=== PATIENT | female | born 1970 ===

== ENCOUNTER 2021-02-04 15:26 | Inpatient (IN) | payer OTHER ==
[~2021-02-04] VITALS: Ht 149.9 cm; Wt 54.9 kg
--- NOTE | 2021-02-04 15:47 | NUR ---
Pt GCS 13-14, very sleepy from phenergan en route. Denies pain now, denies allergies, says has diabetes and high thyroid, no covid vaccine, no drugs, no alcohol, no tobacco. On monitor s tach no ectopy. BG on arrival 174. D5 LR started per addy Steven from previous hospital draining clear yellow urine, Lab to draw. EKG done. Will continue to monitor.
[2021-02-04] MEDS: D5%-LACTATED RINGERS 1,000 ML IV SCH ×2 (15:49→22:40)
--- NOTE | 2021-02-04 16:15 | NUR ---
Lab called re: delay of draw, sending someone now. Pt remains drowsy but will wake up with loud verbal and answer questions. IVF infusing on dial a flow, daly from previous facility draining clear yellow urine. VSS. Will continue to monitor.
[2021-02-04 16:18] LABS: PH, VENOUS 7.189 pH (7.320-7.420)
[2021-02-04 16:19] LABS: MEAN CORPUSCULAR HEMOGLOBIN 27.1 pg (27.0-34.8); MEAN CORPUSCULAR HGB CONC 30.8 g/dL (32.4-35.8); MEAN PLATELET VOLUME 6.7 fL (7.4-10.4); PLATELET COUNT 349 x10^3/uL (130-400); RED BLOOD COUNT 4.41 x10^6/uL (3.82-5.3); RED CELL DISTRIBUTION WIDTH 21.2 % (9.6-15.2)
[2021-02-04 16:30] LABS: ALBUMIN 3.1 g/dL (3.4-5.0); ANION GAP 18 mmol/L (5-15); CALCIUM 9.3 mg/dL (8.5-10.1); CHLORIDE 110 mmol/L (98-107); CREATININE 1.22 mg/dL (0.55-1.02)
--- NOTE | 2021-02-04 16:35 | NUR ---
Labs back, per dr vegas no further orders at this time. Waiting for hospitalist. Will continue to monitor.
[2021-02-04 16:53] LABS: BAND#(MANUAL) 0.12 x10^3/uL; BANDS%(MANUAL) 1 % (0-7); LYMPH#(MANUAL) 0.81 x10^3/uL (1-3.4); LYMPHS% (MANUAL) 7 % (22-44); MONOS#(MANUAL) 0.46 x10^3/uL (0.3-2.7); MONOS% (MANUAL) 4 % (2-9); SEGS% (MANUAL) 88 % (42-75)
[2021-02-04 16:55] LABS: <PLATELET ESTIMATE> ADEQUATE; ANISOCYTOSIS 1+; SMALL PLATELETS 1+
--- NOTE | 2021-02-04 16:56 | NUR ---
Gap 18, requested further orders from dr vegas. No further at this time.
[2021-02-04] MEDS ORDERED: MORPHINE SULFATE 4 MG/ML, 1ML ONE ×2 (17:07→19:54)
[2021-02-04] MEDS ORDERED: KETOROLAC 30 MG/1 ML ONE (17:08)
[2021-02-04 17:12] LABS: ACETONE, SERUM Large (80mg/dL) (Negative)
--- NOTE | 2021-02-04 17:15 | NUR ---
Informed ERP of increasing in pain and current vs. Order for toradol IV. No further orders at this time.
[2021-02-04] MEDS ORDERED: KETOROLAC 30 MG/1 ML IVPush ONE (17:30)
--- NOTE | 2021-02-04 17:40 | NUR ---
ICU physician here to place orders, STAT EKG being done.
--- NOTE | 2021-02-04 17:45 | NUR ---
Lab here for additional bloods, urine sent from [facility], EKG being done, waiting for additional hospitalist orders.
[2021-02-04] MEDS ORDERED: MAGNESIUM SULFATE PMX 2GM/50ML 50 ML ONE (17:52)
[2021-02-04] MEDS ORDERED: POLYETHYLENE GLYCOL 17 GM PACKET PO PRN ×2 (18:00)
[2021-02-04] MEDS ORDERED: VANCOMYCIN PMX 1GM/200ML 200 ML IV ONE (18:00)
[2021-02-04] MEDS ORDERED: ACETAMINOPHEN 325 MG TABLET PO PRN (18:00)
[2021-02-04] MEDS ORDERED: DEXTROSE 50%, 50ML SYRINGE IVPush PRN (18:00)
[2021-02-04] MEDS ORDERED: ONDANSETRON 2MG/ML, 2ML IVPush PRN (18:00)
[2021-02-04] MEDS ORDERED: DOCUSATE 100 MG CAPSULE PO PRN (18:00)
[2021-02-04] MEDS ORDERED: METOCLOPRAMIDE 5 MG/ML, 2ML IV PRN (18:00)
[2021-02-04] MEDS ORDERED: MAGNESIUM SULFATE PMX 2GM/50ML 50 ML IV ONE (18:00)
[2021-02-04] MEDS ORDERED: DEXTROSE 4 GM TAB.CHEW PO PRN (18:00)
[2021-02-04] MEDS ORDERED: ENOXAPARIN 40 MG/0.4 ML SQ SCH (18:00)
[2021-02-04] MEDS ORDERED: GLUCAGON 1 MG IM PRN (18:00)
[2021-02-04] MEDS ORDERED: VANCOMYCIN PER PHARMACY MC PRN (18:00)
[2021-02-04] MEDS: ENOXAPARIN 40 MG/0.4 ML SQ SCH (18:00)
--- NOTE | 2021-02-04 18:08 | NUR ---
Lab here obtaining , tubed med request to pharmacy for IVF and insulin infusion.
[2021-02-04 18:11] LABS: MICROSCOPIC INDICATED
[2021-02-04] MEDS: PIPERACILLIN/TAZO 3.375 GM in DEXTROSE 5% 50 ML IV SCH (18:14)
[2021-02-04] MEDS ORDERED: PHARMACOKINETIC MONITORING MC PRN ×2 (18:30→22:30)
[2021-02-04] MEDS ORDERED: VANCOMYCIN 1,400 MG in SODIUM CHLORIDE 0.9% 250 ML IV ONE (18:30)
[2021-02-04] MEDS: D5%-0.45NACL+KCL 20MEQ 1,000 ML IV SCH (18:33)
--- NOTE | 2021-02-04 18:33 | NUR ---
Pt moved over from ER gurney to CCU bed, IVF with lytes started, zosyn almost finished. Still waiting for Insulin drip from pharmacy. Pt remains sleepy, intermittent confusion, knows name, will converse but occ inappropriate, asking for pain medications. Pos UO from [facility]. Output on Day shift: 2500ml
[2021-02-04 18:42] LABS: ANION GAP 22 mmol/L (5-15); CALCIUM 8.9 mg/dL (8.5-10.1); CHLORIDE 107 mmol/L (98-107); CREATININE 1.19 mg/dL (0.55-1.02)
[2021-02-04 18:45] LABS: TROPONIN I < 0.015 ng/mL (0.000-0.045)
--- NOTE | 2021-02-04 18:53 | NUR ---
Report to ROBERTH Galvez
--- NOTE | 2021-02-04 18:57 | NUR ---
care assumed. pt AxOx2, self and "hospital". pt on monitor. pt repeating statements and needs frequent reorientation
--- NOTE | 2021-02-04 19:15 | NUR ---
Dr Fay notified of agitation and mental status.
[2021-02-04] MEDS: REGULAR INSULIN 100 UNITS in SODIUM CHLORIDE 0.9% 99 ML IV PRN (19:32)
[2021-02-04] MEDS ORDERED: LORazepam 2 MG/ML, 1ML ONE (19:55)
[2021-02-04] MEDS: LORazepam 2 MG/ML, 1ML IVPush PRN (19:57)
[2021-02-04] MEDS ORDERED: MORPHINE SULFATE 4 MG/ML, 1ML IVPush PRN (20:00)
--- NOTE | 2021-02-04 20:22 | NUR ---
pt to CT via pat[facility]
--- NOTE | 2021-02-04 20:41 | NUR ---
pt returned from ct
[2021-02-04] MEDS: SODIUM CHLORIDE FLUSH 10ML SYR IVF SCH (21:00)
--- NOTE | 2021-02-04 21:22 | NUR ---
BED IN LOW POSITION. BED ALARM ON. PT RESTING COMFORTABLY
[2021-02-04 21:56] LABS: ANION GAP 24 mmol/L (5-15); CALCIUM 8.8 mg/dL (8.5-10.1); CHLORIDE 106 mmol/L (98-107); CREATININE 1.36 mg/dL (0.55-1.02)
[2021-02-04 21:59] LABS: TROPONIN I < 0.015 ng/mL (0.000-0.045)
[2021-02-04] MEDS ORDERED: PHARMACOKINETIC CONSULTATION MC ONE (22:30)
--- NOTE | 2021-02-04 22:46 | NUR ---
pt resting comfortably, Per Dr Lynch increase Insulin gtt to 10u for critical lab result
--- NOTE | 2021-02-05 00:17 | NUR ---
pt asleep. arouses to voice.
[2021-02-05] MEDS ORDERED: LORazepam 2 MG/ML, 1ML ONE (01:09)
[2021-02-05] MEDS: LORazepam 2 MG/ML, 1ML IVPush PRN (01:18)
[2021-02-05] MEDS: PIPERACILLIN/TAZO 3.375 GM in DEXTROSE 5% 50 ML IV SCH ×4 (01:39→20:36)
[2021-02-05 02:06] LABS: ANION GAP 10 mmol/L (5-15); CALCIUM 8.6 mg/dL (8.5-10.1); CHLORIDE 114 mmol/L (98-107); CREATININE 1.13 mg/dL (0.55-1.02)
[2021-02-05] MEDS: D5%-0.45NACL+KCL 20MEQ 1,000 ML IV SCH ×3 (03:09→17:49)
[2021-02-05 03:15] LABS: HCG UR SG 1.018 (1.003-1.030)
--- NOTE | 2021-02-05 03:18 | NUR ---
pt arouses to voice. pt AxOx2. falls asleep quickly.
[2021-02-05] MEDS: D5%-LACTATED RINGERS 1,000 ML IV SCH (05:20)
[2021-02-05 05:43] LABS: BASOPHILS % (AUTO) 1 % (0-1); EOSINOPHILS % (AUTO) 0 % (1-7); LYMPHOCYTES % (AUTO) 11 % (22-44); MEAN CORPUSCULAR HGB CONC 31.7 g/dL (32.4-35.8); MEAN PLATELET VOLUME 6.8 fL (7.4-10.4); MONOCYTES % (AUTO) 7 % (2-9); NEUTROPHILS % (AUTO) 81 % (42-75); PLATELET COUNT 314 x10^3/uL (130-400); RED BLOOD COUNT 3.76 x10^6/uL (3.82-5.3); RED CELL DISTRIBUTION WIDTH 21.3 % (9.6-15.2)
[2021-02-05 05:53] LABS: ALBUMIN 2.3 g/dL (3.4-5.0); ANION GAP 15 mmol/L (5-15); CALCIUM 8.2 mg/dL (8.5-10.1); CHLORIDE 111 mmol/L (98-107)
[2021-02-05] MEDS: LEVOTHYROXINE 50 MCG TABLET PO SCH (06:00)
[2021-02-05 06:02] LABS: ALANINE AMINOTRANSFERASE 15 U/L (12-78); ALKALINE PHOSPHATASE 309 U/L (45-117); BILIRUBIN,TOTAL 0.3 mg/dL (0.2-1.0); CHOLESTEROL, TOTAL 157 mg/dL (140-239); CREATININE 1.13 mg/dL (0.55-1.02); HDL CHOL % 33 % (28-40); HDL CHOLESTEROL (DIRECT) 52 mg/dL (40-60); LDL CHOLESTEROL,CALCULATED 71 mg/dL (54-169); LDL/HDL RATIO 1.4 (0.5-3.0); TOTAL PROTEIN 6.5 g/dL (6.4-8.2); TRIGLYCERIDES 171 mg/dL (50-200); TROPONIN I < 0.015 ng/mL (0.000-0.045); VLDL CHOLESTEROL 34 mg/dL (0-25)
--- NOTE | 2021-02-05 06:19 | NUR ---
pt answers to voice. AxOx2. Pt positioned for comfort. VSS.
--- NOTE | 2021-02-05 06:53 | NUR ---
TOOK REPORT FROM BLU NOLAN, ASSUME CARE AT THIS TIME
--- NOTE | 2021-02-05 07:10 | NUR ---
PT AMBULATED TO RESTROOM WITH STEADY GAIT, LINENS CHANGED. NAD
--- NOTE | 2021-02-05 07:10 | NUR ---
Pharmacy-nursing communication sent for esmolol
--- NOTE | 2021-02-05 07:18 | NUR ---
PT CALM IN BED, NAD. NO REQUESTS AT THIS TIME
--- NOTE | 2021-02-05 07:31 | NUR ---
INSULIN STOPPED AT THIS TIME FOR BS 108
[2021-02-05] MEDS: REGULAR INSULIN 100 UNITS in SODIUM CHLORIDE 0.9% 99 ML IV PRN (08:45)
--- NOTE | 2021-02-05 08:46 | NUR ---
BS STARTED AT 1 UNIT FOR BS 152. DIET TRAY GIVEN
--- NOTE | 2021-02-05 09:20 | NUR ---
PHARMACY-NURSING COMMUNICATION SENT FOR SUSIE
[2021-02-05] MEDS: VANCOMYCIN 1,100 MG in SODIUM CHLORIDE 0.9% 250 ML IV SCH ×2 (10:11→21:59)
--- NOTE | 2021-02-05 11:16 | NUR ---
REPORT FROM BEN LEPE.
[2021-02-05] MEDS: SODIUM CHLORIDE FLUSH 10ML SYR IVF SCH ×2 (11:20→22:01)
[2021-02-05 11:35] LABS: ANION GAP 12 mmol/L (5-15); CHLORIDE 113 mmol/L (98-107)
[2021-02-05 11:38] LABS: CREATININE 1.21 mg/dL (0.55-1.02)
[2021-02-05 11:39] LABS: CALCIUM 8.3 mg/dL (8.5-10.1)
--- NOTE | 2021-02-05 11:46 | NUR ---
ECHO AT BEDSIDE
--- NOTE | 2021-02-05 11:55 | NUR ---
PT SLEEPING IN NAD, VSS. ORAL CARE PROVIDED.
[2021-02-05] MEDS ORDERED: INSULIN GLARGINE 100 UNITS/ML, PEN SQ-INSULIN ONE (12:00)
--- NOTE | 2021-02-05 12:15 | NUR ---
REQUESTED MEDS FROM PHARMACY.
--- NOTE | 2021-02-05 12:39 | NUR ---
PILLOW PLACED ON RIGHT SIDE FOR COMFORT, PT SITTING UP AND EATING ICE CHIPS.
--- NOTE | 2021-02-05 13:33 | NUR ---
WAITING FOR LANTUS, CIPRO GTT, AND K-PHOS FROM PHARMACY.
--- NOTE | 2021-02-05 13:53 | NUR ---
PT SITTING UP IN BED AWAKE AND TALKING, PT REPORTS SHE IS FEELING BETTER. MED REC REVIEWED WITH PT. AWAITING FOR MEDS FROM PHARMACY, SPOKE WITH PHARMACIST, THEY WILL SEND MEDS SHORTLY.
[2021-02-05] MEDS ORDERED: DIAZ10TA4 PO (14:00)
[2021-02-05] MEDS ORDERED: LEVO50TA5 PO (14:00)
[2021-02-05] MEDS ORDERED: VENL37.57 PO (14:00)
[2021-02-05] MEDS ORDERED: INSU100I18 SC (14:00)
[2021-02-05] MEDS ORDERED: LISI10TA19 PO (14:00)
[2021-02-05] MEDS ORDERED: INSU100I28 SC (14:00)
[2021-02-05] MEDS ORDERED: BACL-19 PO (14:00)
[2021-02-05] MEDS ORDERED: ATOR10TA9 PO (14:00)
[2021-02-05] MEDS ORDERED: OMEP20CA20 PO (14:00)
[2021-02-05] MEDS ORDERED: METO5SOL18 PO (14:00)
[2021-02-05] MEDS: CIPROFLOXACIN OPHTH SOLN 0.3%, 5ML RIGHTEYE SCH ×2 (14:08→20:37)
[2021-02-05] MEDS: POTASSIUM ACID PHOSPHATE 500 MG TABLET.SOL PO SCH ×2 (14:08→21:59)
--- NOTE | 2021-02-05 14:09 | NUR ---
LANTUS 5 UNITS ADMINISTERED PER AUG.
--- NOTE | 2021-02-05 16:06 | NUR ---
INSULIN DRIP AND D5/1/2NS+20K STOPPED PER DR. LUCIO'S ORDER. NS INFUSING PER MAR.
[2021-02-05] MEDS: SODIUM CHLORIDE 0.9% 1,000 ML IV SCH (16:08)
--- NOTE | 2021-02-05 16:13 | NUR ---
HUMALOG PEN REQUESTED FROM PHARMACY.
[2021-02-05] MEDS: INSULIN LISPRO 100 UNITS/ML, PEN SQ-INSULIN SCH ×2 (17:04→22:01)
--- NOTE | 2021-02-05 17:05 | NUR ---
PROVIDED MEAL TRAY TO PT.
--- NOTE | 2021-02-05 17:12 | NUR ---
CALL TO DR. LUCIO TO UPDATE ON PT AND VERIFY ORDER FOR TRANSFER TO MEDICAL UNIT, PER DR. LUCIO TRANSFER ORDER PLACED THIS MORNING AT 11AM, OKAY TO TRANSFER PT.
--- NOTE | 2021-02-05 17:14 | NUR ---
PRAKASH [phone]
--- NOTE | 2021-02-05 17:28 | NUR ---
UOP 800ML.
--- NOTE | 2021-02-05 18:58 | NUR ---
BEDSIDE REPORT TO ADI LEPE AND CHRIS LEPE.
--- NOTE | 2021-02-05 18:59 | NUR ---
RECIEVED REPORT FROM ANA. PATIENT RESTING COMFORTABLY IN HOSPITAL BED. PATIENT TURN TO HER BACK, FEET FLOATED. PATIENT IS AOX4, DENIES PAIN, NAD AT THIS TIME. WILL CONTINUE TO MONITOR
[2021-02-05] MEDS ORDERED: ENOXAPARIN 40 MG/0.4 ML ONE (20:30)
[2021-02-05] MEDS: ENOXAPARIN 40 MG/0.4 ML SQ SCH (20:36)
--- NOTE | 2021-02-05 20:47 | NUR ---
PATIENT RESTING IN HOSPITAL BED, NAD AT THIS TIME, VSS, MEDICATED PER MAR, AND PATIENT MOVED UP IN BED.
[2021-02-05] MEDS: INSULIN GLARGINE 100 UNITS/ML, PEN SQ-INSULIN SCH (22:00)
--- NOTE | 2021-02-05 22:19 | NUR ---
Pt to be admitted to MEDICAL, room 375. Report called to
[2021-02-05 23:31] VITALS: BP 151/99
[2021-02-05 23:32] VITALS: BP 151/99
[2021-02-06] MEDS: SODIUM CHLORIDE 0.9% 1,000 ML IV SCH (00:44)
[2021-02-06] MEDS: CIPROFLOXACIN OPHTH SOLN 0.3%, 5ML RIGHTEYE SCH ×6 (00:47→20:31)
[2021-02-06 01:03] VITALS: BP 147/95
[2021-02-06] MEDS: PIPERACILLIN/TAZO 3.375 GM in DEXTROSE 5% 50 ML IV SCH ×2 (02:46→08:25)
[2021-02-06] MEDS: POTASSIUM ACID PHOSPHATE 500 MG TABLET.SOL PO SCH ×2 (04:46→11:34)
[2021-02-06 05:51] LABS: BASOPHILS % (AUTO) 1 % (0-1); EOSINOPHILS % (AUTO) 0 % (1-7); LYMPHOCYTES % (AUTO) 21 % (22-44); MEAN CORPUSCULAR HEMOGLOBIN 27.4 pg (27.0-34.8); MEAN CORPUSCULAR HGB CONC 32.8 g/dL (32.4-35.8); MEAN PLATELET VOLUME 6.9 fL (7.4-10.4); MONOCYTES % (AUTO) 6 % (2-9); NEUTROPHILS % (AUTO) 72 % (42-75); PLATELET COUNT 296 x10^3/uL (130-400); RED BLOOD COUNT 3.99 x10^6/uL (3.82-5.3); RED CELL DISTRIBUTION WIDTH 21.1 % (9.6-15.2)
[2021-02-06] MEDS: LEVOTHYROXINE 50 MCG TABLET PO SCH (05:55)
[2021-02-06 06:02] LABS: ALBUMIN 2.2 g/dL (3.4-5.0); ANION GAP 8 mmol/L (5-15); CHLORIDE 111 mmol/L (98-107)
[2021-02-06 06:07] LABS: ALANINE AMINOTRANSFERASE 16 U/L (12-78); ALKALINE PHOSPHATASE 300 U/L (45-117); BILIRUBIN,TOTAL 0.3 mg/dL (0.2-1.0); CREATININE 0.95 mg/dL (0.55-1.02); TOTAL PROTEIN 6.3 g/dL (6.4-8.2)
[2021-02-06 07:43] VITALS: BP 151/98
[2021-02-06] MEDS: INSULIN LISPRO 100 UNITS/ML, PEN SQ-INSULIN SCH ×4 (08:18→20:36)
[2021-02-06] MEDS: INSULIN GLARGINE 100 UNITS/ML, PEN SQ-INSULIN SCH ×2 (09:00→20:35)
[2021-02-06] MEDS: BACLOFEN 10 MG TABLET PO SCH ×3 (11:00→20:34)
[2021-02-06] MEDS: MORPHINE SULFATE 4 MG/ML, 1ML IVPush PRN ×2 (11:30→20:35)
[2021-02-06] MEDS: D5%-0.45NACL+KCL 20MEQ 1,000 ML IV SCH (11:33)
[2021-02-06] MEDS: SODIUM CHLORIDE FLUSH 10ML SYR IVF SCH ×2 (11:34→20:31)
[2021-02-06] MEDS: VANCOMYCIN 1,100 MG in SODIUM CHLORIDE 0.9% 250 ML IV SCH (11:34)
[2021-02-06 13:43] VITALS: BP 142/96
[2021-02-06] MEDS ORDERED: POTASSIUM PHOSPHATE 44 MEQ in SODIUM CHLORIDE 0.9% 500 ML IV ONE (14:30)
[2021-02-06] MEDS: MAGNESIUM OXIDE 400 MG TABLET PO SCH ×2 (15:11→20:32)
[2021-02-06] MEDS ORDERED: D5%-0.45NACL+KCL 20MEQ 1,000 ML IV SCH (17:30)
[2021-02-06] MEDS ORDERED: SODIUM CHLORIDE 0.9% 1,000 ML IV SCH (17:30)
[2021-02-06] MEDS ORDERED: INSULIN LISPRO 100 UNIT/ML, 3ML VIAL SQ-INSULIN ONE (17:30)
[2021-02-06] MEDS ORDERED: SODIUM CHLORIDE 0.9%, 500ML IVBOLUS ONE (17:30)
[2021-02-06 18:13] VITALS: BP 151/86
[2021-02-06] MEDS ORDERED: SODIUM CHLORIDE 0.9% 1,000ML IVBOLUS ONE (19:00)
[2021-02-06] MEDS: ENOXAPARIN 40 MG/0.4 ML SQ SCH (20:30)
[2021-02-07] MEDS: CIPROFLOXACIN OPHTH SOLN 0.3%, 5ML RIGHTEYE SCH ×6 (00:42→19:58)
[2021-02-07 00:55] VITALS: BP 134/85
[2021-02-07 05:18] LABS: BASOPHILS % (AUTO) 1 % (0-1); EOSINOPHILS % (AUTO) 1 % (1-7); LYMPHOCYTES % (AUTO) 24 % (22-44); MEAN CORPUSCULAR HEMOGLOBIN 26.8 pg (27.0-34.8); MEAN CORPUSCULAR HGB CONC 32.1 g/dL (32.4-35.8); MEAN PLATELET VOLUME 6.9 fL (7.4-10.4); MONOCYTES % (AUTO) 9 % (2-9); NEUTROPHILS % (AUTO) 66 % (42-75); PLATELET COUNT 229 x10^3/uL (130-400); RED BLOOD COUNT 3.69 x10^6/uL (3.82-5.3); RED CELL DISTRIBUTION WIDTH 21.5 % (9.6-15.2)
[2021-02-07 05:27] LABS: ALBUMIN 2.1 g/dL (3.4-5.0); ANION GAP 8 mmol/L (5-15); CHLORIDE 110 mmol/L (98-107)
[2021-02-07 05:31] LABS: ALANINE AMINOTRANSFERASE 11 U/L (12-78); ALKALINE PHOSPHATASE 271 U/L (45-117); BILIRUBIN,TOTAL 0.3 mg/dL (0.2-1.0); TOTAL PROTEIN 5.6 g/dL (6.4-8.2)
[2021-02-07] MEDS: LEVOTHYROXINE 50 MCG TABLET PO SCH (05:57)
[2021-02-07] MEDS: BACLOFEN 10 MG TABLET PO SCH (06:00)
[2021-02-07 07:07] VITALS: BP 162/112
[2021-02-07] MEDS: INSULIN LISPRO 100 UNITS/ML, PEN SQ-INSULIN SCH ×4 (08:01→20:04)
[2021-02-07] MEDS: LORazepam 2 MG/ML, 1ML IVPush PRN ×2 (08:54→21:49)
[2021-02-07] MEDS: MORPHINE SULFATE 4 MG/ML, 1ML IVPush PRN ×2 (08:54→19:58)
[2021-02-07] MEDS: INSULIN GLARGINE 100 UNITS/ML, PEN SQ-INSULIN SCH ×2 (09:01→20:04)
[2021-02-07] MEDS: MAGNESIUM OXIDE 400 MG TABLET PO SCH (09:01)
[2021-02-07] MEDS: SODIUM CHLORIDE FLUSH 10ML SYR IVF SCH ×2 (09:02→19:58)
[2021-02-07] MEDS ORDERED: DIAZEPAM 10 MG TABLET PO ONE (10:00)
[2021-02-07 12:34] VITALS: BP 138/95
[2021-02-07 19:48] VITALS: BP 173/112
[2021-02-07] MEDS: ENOXAPARIN 40 MG/0.4 ML SQ SCH (19:57)
[2021-02-07] MEDS ORDERED: SODIUM CHLORIDE 0.9%, 500ML IVBOLUS ONE (21:30)
[2021-02-07 22:10] VITALS: BP 155/99
[2021-02-08 00:03] VITALS: BP 154/107
[2021-02-08] MEDS: CIPROFLOXACIN OPHTH SOLN 0.3%, 5ML RIGHTEYE SCH ×3 (00:55→08:45)
[2021-02-08] MEDS: MORPHINE SULFATE 4 MG/ML, 1ML IVPush PRN (04:30)
[2021-02-08] MEDS: LEVOTHYROXINE 50 MCG TABLET PO SCH (04:30)
[2021-02-08 06:00] LABS: BASOPHILS % (AUTO) 1 % (0-1); EOSINOPHILS % (AUTO) 1 % (1-7); LYMPHOCYTES % (AUTO) 29 % (22-44); MEAN CORPUSCULAR HEMOGLOBIN 27.1 pg (27.0-34.8); MEAN CORPUSCULAR HGB CONC 32.5 g/dL (32.4-35.8); MEAN PLATELET VOLUME 6.8 fL (7.4-10.4); MONOCYTES % (AUTO) 10 % (2-9); NEUTROPHILS % (AUTO) 60 % (42-75); PLATELET COUNT 242 x10^3/uL (130-400); RED BLOOD COUNT 3.75 x10^6/uL (3.82-5.3)
[2021-02-08 06:12] LABS: ALBUMIN 2.2 g/dL (3.4-5.0); ANION GAP 7 mmol/L (5-15); CALCIUM 8.6 mg/dL (8.5-10.1); CHLORIDE 102 mmol/L (98-107)
[2021-02-08 06:19] LABS: ALANINE AMINOTRANSFERASE 13 U/L (12-78); ALKALINE PHOSPHATASE 254 U/L (45-117); BILIRUBIN,TOTAL 0.2 mg/dL (0.2-1.0); CREATININE 0.68 mg/dL (0.55-1.02); TOTAL PROTEIN 6.2 g/dL (6.4-8.2)
[2021-02-08 06:58] VITALS: BP 169/113
[2021-02-08 06:59] VITALS: BP 179/124
[2021-02-08] MEDS: INSULIN LISPRO 100 UNITS/ML, PEN SQ-INSULIN SCH ×2 (08:56→11:42)
[2021-02-08] MEDS: SODIUM CHLORIDE FLUSH 10ML SYR IVF SCH (08:57)
[2021-02-08] MEDS: INSULIN GLARGINE 100 UNITS/ML, PEN SQ-INSULIN SCH (08:57)
[2021-02-08] MEDS ORDERED: DIAZEPAM 10 MG TABLET PO PRN (09:00)
[2021-02-08] MEDS ORDERED: BACLOFEN 10 MG TABLET PO SCH (09:00)
[2021-02-08] MEDS ORDERED: LISINOPRIL 20 MG TABLET PO SCH (10:00)
[2021-02-08] MEDS ORDERED: DIAZ10TA4 PO (11:17)
[2021-02-08] MEDS ORDERED: BACL-19 PO (11:17)
[2021-02-08] MEDS ORDERED: CIPR2.5D2 RIGHTEYE (11:17)
[2021-02-08] MEDS ORDERED: INSU100I28 SC (11:17)
== END 2021-02-08 12:52 | disposition home or self-care (01) | DRG 637 ==
LOC: ED 16:00 → SUATTDRO 17:27 → EDIP 20:41 → 3N 02-05 22:54
PROVIDERS: ADMIT Internal Medicine; ATTEND Internal Medicine
DX: E11.10 Type 2 diabetes mellitus with ketoacidosis without coma (principal); G93.41 Metabolic encephalopathy; F11.20 Opioid dependence, uncomplicated; R65.10 Systemic inflammatory response syndrome (SIRS) of non-infectious origin without acute organ dysfunction; E03.9 Hypothyroidism, unspecified; D63.8 Anemia in other chronic diseases classified elsewhere; D72.829 Elevated white blood cell count, unspecified; E11.649 Type 2 diabetes mellitus with hypoglycemia without coma; E78.5 Hyperlipidemia, unspecified; E83.39 Other disorders of phosphorus metabolism; E83.42 Hypomagnesemia; E88.09 Other disorders of plasma-protein metabolism, not elsewhere classified; F12.90 Cannabis use, unspecified, uncomplicated; F17.210 Nicotine dependence, cigarettes, uncomplicated; F32.9 Major depressive disorder, single episode, unspecified; F41.1 Generalized anxiety disorder; G89.29 Other chronic pain; H10.9 Unspecified conjunctivitis; I10 Essential (primary) hypertension; K21.9 Gastro-esophageal reflux disease without esophagitis; E11.42 Type 2 diabetes mellitus with diabetic polyneuropathy; E11.43 Type 2 diabetes mellitus with diabetic autonomic (poly)neuropathy; K31.84 Gastroparesis; R00.0 Tachycardia, unspecified; Z79.899 Other long term (current) drug therapy; Z98.51 Tubal ligation status
CPT/HCPCS: 36415; 96374; 99291; J7121; 70450; 71045; 80048; 80053; 80061; 80320; 81001; 81025; 82010; 82040; 82803; 82947; 82962; 83036; 83735; 84100; 84443; 84484; 85025; 87040; 93005; 93306; G0378; J1650; J1815; J1885; J2543; J3370; G0480; J2060; J2270; J2765; J3475; J3480; J7030; J7040; J7050